=== PATIENT | female | born 2000 | race Caucasian/White ===

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

== ENCOUNTER 2019-02-18 22:37 | Emergency (ER) | payer OTHER ==
[~2019-02-18] VITALS: Ht 154.9 cm; Wt 71.8 kg
[2019-02-18 22:37] VITALS: Ht 154.9 cm; Wt 71.8 kg
[~2019-02-18 22:37] MED LIST: DOCU-144 PO; FER325 PO; MEDR10TA2 PO; NORE5TAB12 PO; ORTNOV PO
[2019-02-18] MEDS ORDERED: NAPR-985 PO (23:22)
[2019-02-18] MEDS ORDERED: BACI28.34 TOP (23:22)
[2019-02-18] MEDS ORDERED: SILVER SULFADIAZINE 1% 25 GM CR TOP ONE (23:30)
[2019-02-18] MEDS ORDERED: HYDROCODONE/APAP (5/325) TAB PO ONE (23:30)
[2019-02-18 23:42] VITALS: BP 118/72; PULSE 72; RESP 16
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
== END 2019-02-18 23:43 | disposition home or self-care (01) ==
LOC: FTE 22:37
DX: T21.21XA Burn of second degree of chest wall, initial encounter (principal); T24.212A Burn of second degree of left thigh, initial encounter; X12.XXXA Contact with other hot fluids, initial encounter; Y92.9 Unspecified place or not applicable
CPT/HCPCS: 16000; Z7610